=== PATIENT | male | born 1975 | race Native Hawaiian/Other Pacific Islander ===

== ENCOUNTER 2017-09-12 08:07 | Emergency (ER) | payer BC ==
[2017-09-12 08:31] VITALS: BMI 31.0
[2017-09-12 08:40] VITALS: TEMP 98.5
[2017-09-12 08:58] VITALS: RESP 16; O2SAT 98
--- NOTE | 2017-09-12 09:09 | C.PDOC ---
History Of Present Illness 42 yr old male with PMHx of HTN, presents to the ER for feeling dizzy and light headedness since 0730 since morning. Patient states he recently ran out of his HTN medication and has not taken it for the past 2 days. States he checked his blood pressure while at work today and was found to be 190/110 and repeat blood pressure was 190/100. Currently, patient states he feels better and is asymptomatic. Denies fever, chills, vision changes, chest pain, SOB, nausea, vomiting, weakness, numbness or headache. Time Seen by Provider: 09/12/17 08:22 Chief Complaint (Nursing): High Blood Pressure History Per: Patient History/Exam Limitations: no limitations Onset/Duration Of Symptoms: Sudden Onset (0730) Current Symptoms Are (Timing): Better Past Medical History Reviewed: Historical Data, Nursing Documentation, Vital Signs Vital Signs: Last Vital Signs Temp 98.5 F 09/12/17 08:31 Pulse 65 09/12/17 09:59 Resp 16 09/12/17 09:59 BP 138/96 H 09/12/17 09:59 Pulse Ox 98 09/12/17 10:02 - Medical History PMH: Asthma, Back Problems, HTN Surgical History: Back Surgery Family History: States: No Known Family Hx - Social History Hx Alcohol Use: Yes Hx Substance Use: No - Immunization History Hx Tetanus Toxoid Vaccination: No Hx Influenza Vaccination: Yes Hx Pneumococcal Vaccination: No Review Of Systems Except As Marked, All Systems Reviewed And Found Negative. Constitutional: Negative for: Fever, Chills Eyes: Negative for: Vision Change Cardiovascular: Positive for: Light Headedness. Negative for: Chest Pain Respiratory: Negative for: Shortness of Breath Gastrointestinal: Negative for: Nausea, Vomiting Neurological: Positive for: Dizziness. Negative for: Weakness, Numbness, Headache Physical Exam - Physical Exam Appears: Non-toxic, No Acute Distress Skin: Warm, Dry, No Rash Head: Atraumatic, Normacephalic Eye(s): bilateral: Normal Inspection, PERRL, EOMI Ear(s): Bilateral: Normal Oral Mucosa: Moist Lips: Normal Appearing Throat: Normal, No Erythema, No Exudate Neck: Normal, Normal ROM, Supple Chest: Symmetrical, No Tenderness Cardiovascular: Rhythm Regular, No Friction Rub, No Murmur Respiratory: Normal Breath Sounds, No Rales, No Rhonchi, No Stridor, No Wheezing Gastrointestinal/Abdominal: Normal Exam, Soft, No Tenderness, No Guarding, No Rebound Back: Normal Inspection, No CVA Tenderness Extremity: Normal ROM, No Tenderness, No Swelling Neurological/Psych: Oriented x3, Normal Speech, Normal Cranial Nerves, Normal Motor Gait: Steady ED Course And Treatment ECG: Interpreted By Me, Viewed By Me ECG Rhythm: Sinus Rhythm ECG Interpretation: Normal Interpretation Of ECG: Normal ST/T waves. Normal axis. Rate From EC (BPM) O2 Sat by Pulse Oximetry: 98 (RA) Pulse Ox Interpretation: Normal Medical Decision Making Medical Decision Making: PLAN: * EKG * Enalapril PO NOTE: * Patient will be treated with Enalapril 10mg and repeat blood pressure Repeat BP has improved. On re-exam, the patient reports improvement of symptoms. Lungs are CTA, heart is RRR, abdomen is soft, non-tender and the patient is tolerating PO well. Ambulatory in the ED with steady gait. Follow up with the medical doctor/clinic within 1-2 days without fail. Return if worsened. Disposition - Disposition Referrals: Eriberto Greenwood MD [Staff Provider] - Disposition: HOME/ ROUTINE Disposition Time: 09:56 Condition: GOOD Additional Instructions: Follow up with the medical doctor/clinic within 1-2 days without fail. Return if worsened. Prescriptions: Enalapril Maleate [Vasotec] 10 mg PO DAILY #5 tab Instructions: Hypertension (ED) Forms: [facility] (Arabic), Work Excuse - Clinical Impression Clinical Impression: Hypertension, Dizziness - PA / [employer] / Resident Statement MD/DO has reviewed & agrees with the documentation as recorded. - Scribe Statement The provider has reviewed the documentation as recorded by the Scribe Irma Friend All medical record entries made by the Scribe were at my direction and personally dictated by me. I have reviewed the chart and agree that the record accurately reflects my personal performance of the history, physical exam, medical decision making, and the department course for this patient. I have also personally directed, reviewed, and agree with the discharge instructions and disposition.
[2017-09-12 09:59] VITALS: BP 138/96; PULSE 65
--- NOTE | 2017-09-14 16:44 | CARD ---
APPROVED REPORT EKG Measurement Heart [id number] DC [id number] <Conclusion> Normal sinus rhythm Normal ECG
== END 2017-09-12 10:24 | disposition home or self-care (01) ==
LOC: C.ER 08:07
DX: I10 Essential (primary) hypertension (principal); R42 Dizziness and giddiness